=== PATIENT | male | born 1990 | race Caucasian/White ===

== ENCOUNTER 2020-02-22 13:51 | Emergency (ER) | payer BC ==
[~2020-02-22] VITALS: Ht 175.3 cm; Wt 90.9 kg
--- NOTE | 2020-02-22 15:04 | NUR ---
PT TO ROOM 5 VIA WHEELCHAIR. PT STATES "I WOKE UP FEELING FINE, THEN AFTER MY SHOWER I JUST FELT ELIS HEAVY, NOT LIKE WHEN I'M HYPOGLYCEMIC. MY BROUGHT ME IN BECAUSE I WAS VERY SHAKY. THEN WHEN I GOT HERE, AFTER THEY TOOK MY BLOOD PRESSURE, MY EYES CROSS AND I GO WONKY FOR A FEW MINUTES". COMPLETE ASSESSMENT PERFORMED. RN PERFORMS VITALS, AND TAKES BLOOD PRESSURE. 1 MINUTE AFTER PRESSURE PT CROSSES HIS EYES AND MOVES HIS HEAD SIDE TO SIDE. RN BRINGS FINGER TO PATIENTS NOSE AND EYES UNCROSS. NO LOC. RN THEN PERFORMS ORTHOSTATIC BLOOD PRESSURES, AND UPON STANDING PT BEGAN TO SHAKE AND LOWERS HIS HEAD. BLOOD PRESSURE VERY HIGH UPON STANDING. PT PLACED BACK IN BED IN A SITTING POSITION, BUT NO CROSSING OF EYES AT THIS TIME. PT ON MONITOR, CALL LIGHT IN REACH AND FAMILY REMAINS AT BEDSIDE.
--- NOTE | 2020-02-22 15:08 | NUR ---
XRAY AND LAB PERFORMED. PT SITTING IN BED TALKING ON PHONE DESCRIBING HIS SYMPTOMS WITHOUT DIFF. WILL CONTINUE TO MONITOR.
[2020-02-22 15:12] LABS: BASOPHILS # (AUTO) 0.03 x10^3/uL (0-0.1); BASOPHILS % (AUTO) 0 % (0-1); EOSINOPHILS # (AUTO) 0.09 x10^3/uL (0-0.4); EOSINOPHILS % (AUTO) 1 % (1-7); LYMPHOCYTES # (AUTO) 1.92 x10^3/uL (1-3.4); LYMPHOCYTES % (AUTO) 29 % (22-44); MD NO; MEAN CORPUSCULAR HEMOGLOBIN 30.5 pg (27.5-34.5); MEAN CORPUSCULAR HGB CONC 34.3 g/dL (33.2-36.2); MEAN CORPUSCULAR VOLUME 88.9 fL (81-97); MEAN PLATELET VOLUME 6.4 fL (7.4-10.4); MONOCYTES # (AUTO) 0.34 x10^3/uL (0.2-0.8); MONOCYTES % (AUTO) 5 % (2-9); NEUTROPHILS # (AUTO) 4.35 x10^3/uL (1.8-6.8); NEUTROPHILS % (AUTO) 65 % (42-75); PLATELET COUNT 242 x10^3/uL (130-400); RED BLOOD COUNT 5.56 x10^6/uL (4.38-5.82)
--- NOTE | 2020-02-22 15:16 | NUR ---
PT UP TO BR WITH STEADY GAIT TO OBTAIN UA. PT AMBULATING WITHOUT DIFFICULTY.
[2020-02-22 15:19] LABS: ALANINE AMINOTRANSFERASE 36 U/L (12-78); ALBUMIN 4.4 g/dL (3.4-5.0); ANION GAP 7 mmol/L (5-15); CALCIUM 9.2 mg/dL (8.5-10.1); CHLORIDE 104 mmol/L (98-107); CREATININE 1.38 mg/dL (0.7-1.3)
[2020-02-22 15:24] LABS: ALKALINE PHOSPHATASE 70 U/L (45-117); BILIRUBIN,TOTAL 0.6 mg/dL (0.2-1.0); TOTAL PROTEIN 8.1 g/dL (6.4-8.2); TROPONIN I < 0.015 ng/mL (0.000-0.045)
[2020-02-22 15:31] LABS: MICROSCOPIC NOT IND
[2020-02-22 15:37] LABS: CULTURE INDICATED? NO
[2020-02-22 16:09] LABS: ACETONE, SERUM Negative (Negative)
--- NOTE | 2020-02-22 16:13 | NUR ---
PT RESTING IN ROOM. REQUESTING WATER. WILL CONTINUE TO MONITOR.
[2020-02-22] MEDS ORDERED: SODIUM CHLORIDE 0.9% 1,000ML IVBOLUS ONE ×2 (17:00→18:00)
--- NOTE | 2020-02-22 17:18 | NUR ---
IV FLUIDS HAVE FINISHED. PT HAS HIS BROTHER AND HIS AT BEDSIDE. FEEL OK WHILE LYING DOWN, AFRAID TO STAND UP.
[2020-02-22] MEDS ORDERED: SODIUM CHLORIDE FLUSH 10ML SYR IVF ONE (17:30)
--- NOTE | 2020-02-22 18:01 | NUR ---
SECOND LITER OF FLUID STARTED. PT STATED HE FEELS MUCH BETTER, BUT GETS A LITTLE HEAVY WHEN THE BLOOD PRESSURE CUFF GOES OFF. FAMILY REMAIN AT BEDSIDE.
--- NOTE | 2020-02-22 19:03 | NUR ---
PATIENT UP TO BR WITHOUT DIFF. NO C/O SHAKINESS OR DIZZINESS. PT C/O SLIGHTLY DISTENDED ABDOMEN AFTER 2ND BAG OF FLUID. PT NEEDING TO HAVE A BM, AND PASSING GAS.
[2020-02-22 20:00] VITALS: BP 122/68
--- NOTE | 2020-02-22 20:04 | NUR ---
DISCHARGE INSTRUCTIONS GIVEN TO PATIENT AND SPOUSE. BOTH VERBALIZE UNDERSTANDING OF INSTRUCTIONS AND FOLLOW UP. IV REMOVED WITHOUT DIFFICULTY, TIP INTACT. GAUZE AND TAPE IN PLACE, PT INSTRUCTED ON REMOVAL IN 10 MINUTES AND TO APPLY PRESSURE IF BLEEDING PERSISTS. PT INSTRUCTED ON GETTING UP SLOWLY AND RESTING PRIOR TO STANDING. INSTRUCTED TO NOT JUMP UP QUICKLY DUE TO POSSIBLE DIZZINESS. PT INSTRUCTED WHEN AMBULATING TO LOOK STRAIT AHEAD AND NOT DOWN AT THE FLOOR. PT VERBALIZES UNDERSTANDING OF ALL INSTRUCTIONS. PT AMBULATED OUT OF ED PER PEDIS WITH , STRONG STEADY GAIT.
== END 2020-02-22 20:10 | disposition home or self-care (01) ==
LOC: ED 19:30
DX: R55 Syncope and collapse (principal); E86.0 Dehydration; N28.9 Disorder of kidney and ureter, unspecified; H53.8 Other visual disturbances
CPT/HCPCS: 36415; 71045; 80053; 81003; 82010; 82140; 82962; 83690; 83880; 84484; 85025; 93005; 96360; 96361; 99285; J7030